=== PATIENT | male | born 1985 | race Native Hawaiian/Other Pacific Islander ===

== ENCOUNTER 2020-01-18 12:04 | Outpatient (CLI) | payer OTHER | END 2020-01-18 20:54 | disposition home or self-care (01) | LOC: LAB 12:04 | DX: R07.9 Chest pain, unspecified (principal); R94.31 Abnormal electrocardiogram [ECG] [EKG] | CPT/HCPCS: 82550; 82552; 84484 ==

== ENCOUNTER 2020-01-24 12:51 | Outpatient (CLI) | payer OTHER | END 2020-01-24 19:24 | disposition home or self-care (01) | LOC: LAB 12:51 | DX: Z11.3 Encounter for screening for infections with a predominantly sexual mode of transmission (principal); Z02.6 Encounter for examination for insurance purposes | CPT/HCPCS: 80074; 86694; 87535; G0432 ==

== ENCOUNTER 2020-01-29 13:32 | Outpatient (CLI) | payer OTHER | END 2020-01-29 19:25 | disposition home or self-care (01) | LOC: LAB 13:32 | DX: Z11.3 Encounter for screening for infections with a predominantly sexual mode of transmission (principal); Z13.9 Encounter for screening, unspecified | CPT/HCPCS: 86592; 87529 ==

== ENCOUNTER 2020-01-30 09:21 | Outpatient (CLI) | payer OTHER | END 2020-01-30 19:14 | disposition home or self-care (01) | LOC: RESP 09:21 | DX: R07.89 Other chest pain (principal); I51.7 Cardiomegaly | CPT/HCPCS: 93306 ==

== ENCOUNTER 2020-05-28 14:17 | Outpatient (CLI) | payer OTHER | END 2020-05-28 22:34 | disposition home or self-care (01) | LOC: LAB 14:17 | DX: R53.83 Other fatigue (principal); F41.9 Anxiety disorder, unspecified; G47.00 Insomnia, unspecified; R53.81 Other malaise | CPT/HCPCS: 84402; 84403; 86769 ==

== ENCOUNTER 2020-09-11 13:45 | Outpatient (CLI) | payer OTHER ==
[2020-09-11 14:05] LABS: PLATELET COUNT 249 K/uL (142-355)
[2020-09-11 14:16] LABS: POTASSIUM 4.3 mmol/L (3.6-5.2)
== END 2020-09-11 20:15 | disposition home or self-care (01) ==
LOC: LAB 13:45
PROVIDERS: Internal Medicine
DX: R53.83 Other fatigue (principal); R53.81 Other malaise; G47.00 Insomnia, unspecified; F41.9 Anxiety disorder, unspecified; R80.9 Proteinuria, unspecified
CPT/HCPCS: 80053; 80061; 83036; 85027

== ENCOUNTER 2021-01-28 14:07 | Outpatient (CLI) | payer OTHER ==
[2021-01-28 15:08] LABS: PLATELET COUNT 259 K/uL (142-355)
[2021-01-28 15:26] LABS: POTASSIUM 4.4 mmol/L (3.6-5.2)
== END 2021-01-28 19:27 | disposition home or self-care (01) ==
LOC: LAB 14:07
PROVIDERS: ATTEND Internal Medicine
DX: R53.83 Other fatigue (principal); F41.9 Anxiety disorder, unspecified; R53.81 Other malaise; G47.00 Insomnia, unspecified; I10 Essential (primary) hypertension; Z79.899 Other long term (current) drug therapy
CPT/HCPCS: 80053; 80061; 83036; 84402; 84403; 84439; 84443; 84481; 85027

== ENCOUNTER 2021-07-17 14:05 | Outpatient (CLI) | payer OTHER | END 2021-07-17 20:21 | disposition home or self-care (01) | LOC: LAB 14:05 | PROVIDERS: ATTEND Internal Medicine | DX: H92.12 Otorrhea, left ear (principal) | CPT/HCPCS: 87070; 87205 ==

== ENCOUNTER 2021-12-12 14:00 | Outpatient (CLI) | payer OTHER | END 2021-12-12 20:38 | disposition home or self-care (01) | LOC: RAD 14:00 | PROVIDERS: ATTEND Internal Medicine | DX: R05.3 Chronic cough (principal); R06.02 Shortness of breath ==